=== PATIENT | male | born 1975 | race Two or more races ===

== ENCOUNTER → 2017-07-25 | Outpatient (CLI) | payer BC | LOC: M RAD 14:33 | DX: M79.605 Pain in left leg (principal); R60.0 Localized edema | CPT/HCPCS: 93971 ==

== ENCOUNTER → 2017-07-28 | Outpatient (CLI) | payer BC | LOC: M RAD 17:36 | DX: M79.89 Other specified soft tissue disorders (principal) | CPT/HCPCS: 93971 ==

== ENCOUNTER → 2017-12-15 | Outpatient (REF) | payer BC ==
[2017-12-15 17:37] LABS: HEMATOCRIT 41.5 % (42.0-52.0); MEAN CORPUSCULAR HEMOGLOBIN 31.4 pg (27.0-33.0); MEAN CORPUSCULAR HGB CONC 33.7 g/dl (32.0-36.5); PLATELET COUNT, AUTOMATED 223 10^3/uL (150-450); RED BLOOD COUNT 4.46 10^6/uL (4.30-6.10); RED CELL DISTRIBUTION WIDTH 12.8 % (11.5-14.5); WHITE BLOOD COUNT 7.7 10^3/uL (4.0-10.0)
[2017-12-15 18:04] LABS: INR 0.93; PROTHROMBIN TIME 12.6 SECONDS (12.1-14.4)
[2017-12-15 18:05] LABS: PARTIAL THROMBOPLASTIN TIME 30.7 SECONDS (25.4-37.6)
[2017-12-15 18:31] LABS: ALBUMIN 3.9 GM/DL (3.2-5.2); ALBUMIN/GLOBULIN RATIO 1.18 (1.00-1.93); ALKALINE PHOSPHATASE 72 U/L (45-117); ALT/SGPT 29 U/L (12-78); ANION GAP 8 MEQ/L (8-16); AST/SGOT 17 U/L (7-37); BILIRUBIN,TOTAL 0.3 MG/DL (0.2-1.0); BLOOD UREA NITROGEN 12 MG/DL (7-18); CALCIUM LEVEL 9.1 MG/DL (8.5-10.1); CARBON DIOXIDE LEVEL 28 MEQ/L (21-32); CHLORIDE LEVEL 109 MEQ/L (98-107); CREATININE FOR GFR 1.01 MG/DL (0.70-1.30); GLOMERULAR FILTRATION RATE > 60.0 (>60); GLUCOSE, FASTING 89 MG/DL (70-100); POTASSIUM SERUM 4.4 MEQ/L (3.5-5.1); SODIUM LEVEL 145 MEQ/L (136-145); TOTAL PROTEIN 7.2 GM/DL (6.4-8.2)
== END ==
LOC: M SFHCADAM 15:13
DX: I82.431 Acute embolism and thrombosis of right popliteal vein (principal)

== ENCOUNTER → 2017-12-15 | Outpatient (CLI) | payer BC | LOC: M RAD 13:11 | DX: I82.431 Acute embolism and thrombosis of right popliteal vein (principal); I82.441 Acute embolism and thrombosis of right tibial vein; I82.811 Embolism and thrombosis of superficial veins of right lower extremity | CPT/HCPCS: 93971 ==

== ENCOUNTER → 2018-01-12 | Outpatient (CLI) | payer BC | LOC: M RAD 16:45 | DX: I82.431 Acute embolism and thrombosis of right popliteal vein (principal) | CPT/HCPCS: 93970 ==

== ENCOUNTER → 2018-05-05 | Outpatient (CLI) | payer BC ==
--- NOTE | 2018-05-06 09:01 | REP ---
RIGHT ELBOW COMPLETE: 05/05/2018. CLINICAL HISTORY: Right arm injury. FINDINGS: Four views are provided. There is a tiny spur at the triceps insertion on the olecranon. No soft tissue swelling to suggest olecranon bursitis. There is no evidence of an elbow joint effusion. The radial head and capitellum align normally on all projections. There is no fracture of the olecranon or distal humerus. No avulsion or soft tissue calcifications adjacent to the epicondyles. IMPRESSION: 1. There is no fracture, joint effusion, avulsion, or focal bone lesion about the elbow. A tiny spur at the triceps insertion is noted. Electronically Signed by Kal Robertson MD 05/06/2018 09:30 A
== END ==
LOC: M RAD 20:38
PROVIDERS: ATTEND Physician Assistant
DX: S59.901A Unspecified injury of right elbow, initial encounter (principal); X58.XXXA Exposure to other specified factors, initial encounter; Y92.89 Other specified places as the place of occurrence of the external cause

== ENCOUNTER → 2019-03-06 | Outpatient (REF) | payer BC | LOC: M LAB REF 16:32 | PROVIDERS: ATTEND Physician Assistant Medical | DX: J02.9 Acute pharyngitis, unspecified (principal) ==

== ENCOUNTER → 2019-12-18 | Outpatient (REF) | payer BC ==
[2019-12-18 12:51] LABS: BASO # 0.1 10^3/uL (0.0-0.2); BASO % 1.1 % (0.0-1.0); EOS # 0.3 10^3/uL (0.0-0.5); EOS % 4.3 % (0.0-3.0); HEMATOCRIT 42.9 % (42.0-52.0); HEMOGLOBIN 14.2 g/dl (13.5-17.5); LYMPH # 2.2 10^3/uL (1.5-5.0); LYMPH % 30.4 % (24.0-44.0); MEAN CORPUSCULAR HGB CONC 33.1 g/dl (32.0-36.5); MEAN CORPUSCULAR VOLUME 93.7 fl (80.0-96.0); MONO # 0.7 10^3/uL (0.0-0.8); NEUTROPHILS # 3.9 10^3/uL (1.5-8.5); NEUTROPHILS % 54.1 % (36.0-66.0); PLATELET COUNT, AUTOMATED 244 10^3/uL (150-450); RED BLOOD COUNT 4.58 10^6/uL (4.30-6.10); WHITE BLOOD COUNT 7.2 10^3/uL (4.0-10.0)
[2019-12-18 19:02] LABS: ALBUMIN 3.7 GM/DL (3.2-5.2); ALT/SGPT 35 U/L (12-78); BILIRUBIN,TOTAL 0.6 MG/DL (0.2-1.0); BLOOD UREA NITROGEN 11 MG/DL (7-18); CARBON DIOXIDE LEVEL 28 MEQ/L (21-32); CHLORIDE LEVEL 108 MEQ/L (98-107); CREATININE FOR GFR 1.07 MG/DL (0.70-1.30); GLOMERULAR FILTRATION RATE > 60.0 (>60); GLUCOSE, FASTING 101 MG/DL (70-100); POTASSIUM SERUM 4.6 MEQ/L (3.5-5.1); SODIUM LEVEL 141 MEQ/L (136-145); TOTAL PROTEIN 6.9 GM/DL (6.4-8.2)
== END ==
LOC: M LABDRWAD 12:28
PROVIDERS: ATTEND Physician Assistant
DX: R10.814 Left lower quadrant abdominal tenderness (principal)

== ENCOUNTER → 2019-12-19 | Outpatient (CLI) | payer BC ==
[~2019-12-19] MED LIST: GASTROGRAFIN SOLUTION 30ML (Q9963) As Ordered ONE; ISOVUE-370 76% 100ML VIAL As Ordered ONE
--- NOTE | 2019-12-19 17:19 | REPVR ---
PROCEDURE INFORMATION: Exam: CT Abdomen And Pelvis With Contrast Exam date and time: 12/19/2019 3:06 PM Age: 43 years old Clinical indication: Abdominal pain; Localized; Left; Additional info: Lower left quadrant abd tenderness TECHNIQUE: Imaging protocol: Computed tomography of the abdomen and pelvis with intravenous contrast. Axial, coronal and sagittal reformatted images were created and reviewed. Radiation optimization: All CT scans at this facility use at least one of these dose optimization techniques: automated exposure control; mA and/or kV adjustment per patient size (includes targeted exams where dose is matched to clinical indication); or iterative reconstruction. Contrast material: ISOVUE 370; Contrast volume: 100 ml; Contrast route: INTRAVENOUS (IV); COMPARISON: No relevant prior studies available. FINDINGS: Liver: Unremarkable. Gallbladder and bile ducts: No radiodense gallstones. No biliary ductal dilatation. Pancreas: Unremarkable. Spleen: Unremarkable. Adrenals: Unremarkable. Kidneys and ureters: No mass. No radiodense calculi. No hydronephrosis. Stomach and bowel: No bowel wall thickening. No obstruction. No pneumatosis. Appendix: Normal. Intraperitoneal space: Trace nonspecific free pelvic fluid. No organized fluid collection. No free air. Vasculature: Unremarkable. No aneurysm. Lymph nodes: No pathologically enlarged lymph nodes. Urinary bladder: Unremarkable as visualized. Reproductive: Mildly enlarged prostate. Bones/joints: No acute osseous abnormality. Mild degenerative changes. Soft tissues: Unremarkable. IMPRESSION: 1. No CT evidence of acute intra-abdominal or pelvic pathology. 2. Additional findings, as above. Electronically signed by: Broderick Shrestha On 12/19/2019 17:19:05 PM
== END ==
LOC: M RAD 15:01
PROVIDERS: ATTEND Physician Assistant
DX: R10.814 Left lower quadrant abdominal tenderness (principal)
CPT/HCPCS: 74177; Q9963; Q9967

== ENCOUNTER 2021-03-10 23:16 | Emergency (ER) | payer BC ==
[~2021-03-10] VITALS: Ht 180.3 cm; Wt 104.0 kg
[2021-03-11] MEDS ORDERED: NORCO, ANEXSIA 5/325MG TABLET (HYDROcodone/ACETAMINOPHEN) PO ONE (01:10)
[2021-03-11] MEDS ORDERED: HYDR-3713 PO (01:39)
[2021-03-11] MEDS ORDERED: NORCO 5/325MG TABLET (BULK FOR ED) PO ONE (02:00)
--- NOTE | 2021-03-11 02:22 | REPVR ---
PROCEDURE INFORMATION: Exam: XR Right Ankle Exam date and time: 03/11/2021 12:41 AM Age: 45 years old Clinical indication: Pain; Ankle and lower leg; Right; Additional info: Leg gave out fell, tenderness TECHNIQUE: Imaging protocol: XR Right ankle. Views: 3 or more views. COMPARISON: None FINDINGS: There is an oblique minimally displaced flexure through the distal fibular diaphysis. The distal tibia is intact. Distal tibiofibular congruency is maintained. The ankle mortise is preserved. No subchondral defect is seen at the talar dome. There is a moderately large plantar calcaneal heel spur noted. IMPRESSION: Acute distal fibular fracture. Findings discussed above in detail. Electronically signed by: Bud Howard On 03/11/2021 02:21:32 AM
--- NOTE | 2021-03-11 02:23 | REPVR ---
PROCEDURE INFORMATION: Exam: XR Right Tibia and Fibula Exam date and time: 03/11/2021 12:41 AM Age: 45 years old Clinical indication: Pain; Ankle and lower leg; Right; Additional info: Leg gave out fell, tenderness TECHNIQUE: Imaging protocol: XR Right tibia and fibula. Views: 2 views. COMPARISON: None FINDINGS: Proximal and distal tibiofibular congruency is maintained. There is an oblique distal fibular diaphyseal fracture. No acute tibial fracture is seen. IMPRESSION: Acute distal fibular fracture. Electronically signed by: Bud Howard On 03/11/2021 02:22:48 AM
[2021-03-11 02:37] VITALS: BP 138/70
== END 2021-03-11 02:50 | disposition home or self-care (01) ==
LOC: M ED 23:16
DX: S82.431A Displaced oblique fracture of shaft of right fibula, initial encounter for closed fracture (principal); I10 Essential (primary) hypertension; W10.8XXA Fall (on) (from) other stairs and steps, initial encounter; Z88.0 Allergy status to penicillin; Z88.1 Allergy status to other antibiotic agents; Z88.2 Allergy status to sulfonamides; Y92.009 Unspecified place in unspecified non-institutional (private) residence as the place of occurrence of the external cause; Y93.9 Activity, unspecified; Y99.9 Unspecified external cause status

== ENCOUNTER → 2021-03-13 | Outpatient (CLI) | payer BC ==
[~2021-03-13] MED LIST changes: -GASTROGRAFIN SOLUTION 30ML (Q9963) As Ordered ONE; +HYDR-3713 PO; -ISOVUE-370 76% 100ML VIAL As Ordered ONE
--- NOTE | 2021-03-14 11:37 | ECGEPIP ---
[facility] Test Date: 2021-03-13 Pat Name: ROBERTO CARLOS MCCARTHY Department: Room: - Gender: Male [employer] Operator: ISAURA : 1975 Requested By: Cleveland Sweet Order Number: [id number] Reading MD: Travis Mariano Measurements Intervals [place] Rate: 61 P: 43 MS: 162 QRS: 28 QRSD: 88 T: 32 QT: 406 QTc: 408 Interpretive Statements Normal sinus rhythm No prior Electronically Signed on 03-14-2021 11:37:35 EST by Travis Mariano
== END ==
LOC: M EKG 10:53
PROVIDERS: ATTEND Orthopaedic Surgery
DX: Z01.810 Encounter for preprocedural cardiovascular examination (principal); S82.899A Other fracture of unspecified lower leg, initial encounter for closed fracture; Z86.79 Personal history of other diseases of the circulatory system; X58.XXXA Exposure to other specified factors, initial encounter; Y92.9 Unspecified place or not applicable; Y93.9 Activity, unspecified; Y99.9 Unspecified external cause status

== ENCOUNTER 2021-05-13 16:00 | Outpatient (RCR) | payer BC | END 2021-05-18 | LOC: M PT 16:00 | PROVIDERS: ATTEND Orthopaedic Surgery | DX: Z98.890 Other specified postprocedural states (principal); S82.61XD Displaced fracture of lateral malleolus of right fibula, subsequent encounter for closed fracture with routine healing ==

== ENCOUNTER 2021-06-17 16:45 | Outpatient (RCR) | payer BC | END 2021-06-18 | LOC: M PT 16:45 | PROVIDERS: ATTEND Orthopaedic Surgery | DX: Z47.89 Encounter for other orthopedic aftercare (principal); Z98.890 Other specified postprocedural states ==

== ENCOUNTER 2021-07-15 16:45 | Outpatient (RCR) | payer BC | END 2021-07-18 | LOC: M PT 16:45 | PROVIDERS: ATTEND Orthopaedic Surgery | DX: Z47.89 Encounter for other orthopedic aftercare (principal); Z98.890 Other specified postprocedural states ==

== ENCOUNTER 2021-08-12 16:45 | Outpatient (RCR) | payer BC | END 2021-08-18 | LOC: M PT 16:45 | PROVIDERS: ATTEND Orthopaedic Surgery | DX: Z47.89 Encounter for other orthopedic aftercare (principal); Z98.890 Other specified postprocedural states ==

== ENCOUNTER 2021-08-26 13:22 | Outpatient (RCR) | payer BC | END 2021-09-17 | LOC: M PT 13:22 | PROVIDERS: ATTEND Orthopaedic Surgery | DX: Z47.89 Encounter for other orthopedic aftercare (principal); Z98.890 Other specified postprocedural states ==

== ENCOUNTER 2021-10-21 15:00 | Outpatient (RCR) | payer BC | END 2021-11-18 | LOC: M PT 15:00 | PROVIDERS: ATTEND Orthopaedic Surgery | DX: S82.61XD Displaced fracture of lateral malleolus of right fibula, subsequent encounter for closed fracture with routine healing (principal); Z98.890 Other specified postprocedural states ==

== ENCOUNTER → 2021-10-30 | Outpatient (REF) | payer BC | LOC: M LAB REF 20:03 | PROVIDERS: ATTEND Physician Assistant Medical | DX: L98.8 Other specified disorders of the skin and subcutaneous tissue (principal) ==

== ENCOUNTER 2022-01-11 09:02 | Emergency (ER) | payer BC ==
[~2022-01-11] VITALS: Ht 180.3 cm; Wt 105.9 kg
[2022-01-11] MEDS ORDERED: BISO5TAB14 PO (09:22)
[2022-01-11] MEDS ORDERED: XARE20TA PO (09:22)
[2022-01-11 15:09] VITALS: BP 142/93
== END 2022-01-11 15:11 | disposition home or self-care (01) ==
LOC: M ED 09:02
DX: R07.9 Chest pain, unspecified (principal); I10 Essential (primary) hypertension; Z88.0 Allergy status to penicillin; Z88.1 Allergy status to other antibiotic agents; Z88.2 Allergy status to sulfonamides; Z79.01 Long term (current) use of anticoagulants; Z79.82 Long term (current) use of aspirin; Z79.899 Other long term (current) drug therapy

== ENCOUNTER → 2022-01-23 | Outpatient (CLI) | payer BC ==
[~2022-01-23] MED LIST changes: +BISO5TAB14 PO; +XARE20TA PO
[2022-01-23 09:06] LABS: HEMATOCRIT 41.9 % (42.0-52.0); HEMOGLOBIN 13.8 g/dl (13.5-17.5); MEAN CORPUSCULAR HEMOGLOBIN 31.2 pg (27.0-33.0); MEAN CORPUSCULAR HGB CONC 32.9 g/dl (32.0-36.5); MEAN CORPUSCULAR VOLUME 94.6 fl (80.0-96.0); PLATELET COUNT, AUTOMATED 239 10^3/uL (150-450); RED BLOOD COUNT 4.43 10^6/uL (4.30-6.10); WHITE BLOOD COUNT 6.6 10^3/uL (4.0-10.0)
[2022-01-23 09:59] LABS: ALBUMIN 3.5 GM/DL (3.2-5.2); ALT/SGPT 28 U/L (12-78); BILIRUBIN,TOTAL 0.4 MG/DL (0.2-1.0); BLOOD UREA NITROGEN 16 MG/DL (7-18); CALCIUM LEVEL 9.1 MG/DL (8.5-10.1); CARBON DIOXIDE LEVEL 29 MEQ/L (21-32); CHLORIDE LEVEL 107 MEQ/L (98-107); CHOLESTEROL LEVEL 160 MG/DL (<200); CHOLESTEROL RISK RATIO 4.102 (<5); CREATININE FOR GFR 0.95 MG/DL (0.70-1.30); GLOMERULAR FILTRATION RATE > 60.0 (>60); GLUCOSE, FASTING 99 MG/DL (70-100); HDL CHOLESTEROL 39 MG/DL (>40); LDL CHOLESTEROL 99 MG/DL (<100); NON-HDL-C 121 MG/DL; POTASSIUM SERUM 4.5 MEQ/L (3.5-5.1); SODIUM LEVEL 140 MEQ/L (136-145); TOTAL PROTEIN 6.8 GM/DL (6.4-8.2); TRIGLYCERIDES LEVEL 110 MG/DL (<150)
[2022-01-23 10:29] LABS: HEMOGLOBIN A1c 5.5 %
== END ==
LOC: M LAB 08:34
PROVIDERS: ATTEND Family Medicine
DX: E78.5 Hyperlipidemia, unspecified (principal); I10 Essential (primary) hypertension; D68.51 Activated protein C resistance; Z86.718 Personal history of other venous thrombosis and embolism; Z12.5 Encounter for screening for malignant neoplasm of prostate; Z13.1 Encounter for screening for diabetes mellitus
CPT/HCPCS: 36415; 80053; 80061; 83036; 84439; 84443; 85027; G0103